=== PATIENT | female | born 1970 | race Caucasian/White ===

== ENCOUNTER 2021-01-03 04:25 | Emergency (ER) | payer OTHER ==
[~2021-01-03] VITALS: Ht 157.5 cm; Wt 52.2 kg
[2021-01-03 04:28] VITALS: BP 124/68
--- NOTE | 2021-01-03 04:37 | NUR ---
PT TAKEN TO BED 9
--- NOTE | 2021-01-03 04:39 | NUR ---
PT C/O OF FEET PAIN ESPECIALLY IN THE MORNING X 2 WEEKS, PT ALSO C/O COUGHING AND DIARRHEA X 2 DAYS. PT REQUESTING A COVID TEST. MEDICAL HX:HTN,MIGRAINES,ANXIETY,DEPRESSION MEDS:LOSARTAN,GABPENTIN, REMERON,IMITREX NKA
[2021-01-03 05:32] LABS: APPEARANCE,URINE CLEAR (CLEAR); BILIRUBIN,URINE NEGATIVE (NEGATIVE); BLOOD, URINE NEGATIVE (NEGATIVE); COLOR,URINE YELLOW (YELLOW); LEUKOCYTE ESTERASE ,URINE NEGATIVE (NEGATIVE); NITRITE, URINE NEGATIVE (NEGATIVE); UGLUCOSE NEGATIVE (NEGATIVE)
[2021-01-03 05:37] LABS: BASOPHILS % (AUTO) 0.4 % (0.0-2.0); EOSINOPHILS # (AUTO) 0.1 K/uL (0-0.4); HEMATOCRIT 42.6 % (36-48); HEMOGLOBIN 14.7 g/dL (12.0-16.0); LYMPHOCYTES # (AUTO) 1.6 K/uL (2.5-16.5); LYMPHOCYTES % (AUTO) 26.2 % (20.5-51.1); MEAN CORPUSCULAR HEMOGLOBIN 32 pg (27-31); MEAN CORPUSCULAR HGB CONC 35 g/dL (33-37); MEAN CORPUSCULAR VOLUME 92.3 fL (80-94); MONOCYTES # (AUTO) 0.5 K/uL (0.8-1.0); MONOCYTES % (AUTO) 8.3 % (1.7-9.3); NEUTROPHILS % (AUTO) 64.1 % (42.2-75.2); PLATELET COUNT (AUTO) 233 K/uL (140-450); RED BLOOD CELL COUNT(AUTO) 4.61 MIL/uL (4.20-5.40); WHITE BLOOD COUNT (AUTO) 6.3 K/uL (4.8-10.8)
[2021-01-03 05:47] LABS: ALBUMIN 3.5 g/dL (3.4-5.0); ANION GAP 11.9 (8-16); POTASSIUM 3.9 mmol/L (3.5-5.1); TOTAL BILIRUBIN 0.4 mg/dL (0.0-1.0)
[2021-01-03 06:16] VITALS: BP 124/68
--- NOTE | 2021-01-03 06:16 | NUR ---
Patient discharged with v/s stable. Written and verbal after care instructions given and explained. Patient verbalized understanding. ARM BAND REMOVED Ambulatory with steady gait. All questions addressed prior to discharge. Advised to follow up with PMD.
--- NOTE | 2021-01-03 06:24 | NUR ---
Chart checked and completed. The patient's care was reviewed and supervised by GERALDO FIGUEROA RN.
== END 2021-01-03 06:16 | disposition home or self-care (01) ==
LOC: MED 04:25
DX: M79.605 Pain in left leg (principal); Z20.822 Contact with and (suspected) exposure to COVID-19; M79.604 Pain in right leg; G62.9 Polyneuropathy, unspecified; R19.7 Diarrhea, unspecified; F17.290 Nicotine dependence, other tobacco product, uncomplicated; Z71.6 Tobacco abuse counseling
CPT/HCPCS: 36415; 80053; 81003; 85025; 99283

== ENCOUNTER 2021-08-18 21:04 | Emergency (ER) | payer MEDICAID, OTHER ==
[~2021-08-18] VITALS: Ht 157.5 cm; Wt 61.2 kg
[2021-08-18 21:22] VITALS: BP 137/76
--- NOTE | 2021-08-18 23:09 | NUR ---
Called first time- no show in lobby or outside.
--- NOTE | 2021-08-18 23:15 | NUR ---
Called second time- no show in lobby or outside.
--- NOTE | 2021-08-18 23:23 | NUR ---
Kwame srivastava in ED - 08/19/21 at 0155 by [email or web address] PATIENT LEFT WITHOUT BEING SEEN BY DR. Dixon. NO FURTHER CARE PROVIDED FOR PATIENT.
--- NOTE | 2021-08-19 01:50 | NUR ---
Patient walked in to lobby.
--- NOTE | 2021-08-19 01:55 | NUR ---
PT BIBS TAKEN TO RM 06.
--- NOTE | 2021-08-19 02:20 | NUR ---
51/F BIB SELF C/O DEX FOOT PAIN X1WEEK. JIMMY STATED THAT SHE STARTED HAVING GREEN AROUND HER TOES, THEN IT TURNED PURPLE NOW ITS WHITE. "I FEEL NUMBNESS AROUND THE AREA AND IT HURTS SO BAD". PATIENT PAIN IS 10/10 AND STABBING "FEELS LIKE IM WALKING ON ROCKS". PATIENT ALSO C/O THE LEFT BIG TOE APPEARS TO BE WHITE ON THE NAIL. PATIENT ALSO C/O VAGINAL ITCHINESS AND BURNING SENSATION WHILE URINATING. DENIES SEXUAL PARTNERS AT THIS TIME. DENIES SOB/CP/N/V/D/C. PATIENT PLACED IN BED. BED LOW AND LOCKED. ALL NEEDS MET. PMHX SCIATIC NKA
--- NOTE | 2021-08-19 02:32 | NUR ---
DR. MAIN AT BEDSIDE EVALUATING PT.
[2021-08-19 02:44] LABS: APPEARANCE,URINE SL CLOUDY (CLEAR); BILIRUBIN,URINE 1+ (NEGATIVE); BLOOD, URINE TRACE-I (NEGATIVE); COLOR,URINE YELLOW (YELLOW); LEUKOCYTE ESTERASE ,URINE TRACE (NEGATIVE); NITRITE, URINE NEGATIVE (NEGATIVE); UGLUCOSE NEGATIVE (NEGATIVE)
[2021-08-19 02:53] LABS: RBC,URINE 0-5 /HPF (0-5)
[2021-08-19] MEDS ORDERED: NAPR-54 PO (03:04)
[2021-08-19] MEDS ORDERED: CEPH-588 PO (03:04)
[2021-08-19 03:29] VITALS: BP 136/78
--- NOTE | 2021-08-19 03:29 | NUR ---
Patient discharged with v/s stable. Written and verbal after care instructions given ON NEUROPATHIC PAIN AND UTI and explained. Patient alert, oriented and verbalized understanding of instructions. Ambulatory with steady gait. All questions addressed prior to discharge. ID band removed. Patient advised to follow up with PMD. Rx of CEPHALEXIN AND NOPROXEN given.
--- NOTE | 2021-08-19 03:30 | NUR ---
Chart checked and completed.
== END 2021-08-19 03:29 | disposition home or self-care (01) ==
LOC: MED 21:04
DX: N39.0 Urinary tract infection, site not specified (principal); L03.032 Cellulitis of left toe; G62.9 Polyneuropathy, unspecified; I10 Essential (primary) hypertension; F17.210 Nicotine dependence, cigarettes, uncomplicated; Z79.1 Long term (current) use of non-steroidal anti-inflammatories (NSAID); Z79.2 Long term (current) use of antibiotics
CPT/HCPCS: 81001; 81025; 87086; 99283